=== PATIENT | female | born 1935 | race Caucasian/White ===

== ENCOUNTER 2023-01-16 14:43 | Outpatient (REF) | payer MEDICARE, BC, SELFPAY ==
[2023-01-16 21:19] LABS: HCT 38.4 % (36.0-46.0); HGB 12.6 g/dL (11.2-15.7); MCH 32.2 pg (27.0-33.0); MCHC 32.8 % (32.0-36.0); MCV 98 fL (80-95); MPV 12.6 fL (8.0-11.0); Platelet Count 225 10^3/uL (130-400); RBC 3.91 10^6/uL (3.93-5.22); RDW 12.2 % (11.7-14.6); RDW-SD 44.1 fL; WBC 5.37 10^3/uL (4.4-10.8)
[2023-01-16 21:31] LABS: Iron 88 ug/dL (50-170); Total Iron Binding Capacity 310 ug/dL (250-450); Transferrin Sat 28 % (15-50)
[2023-01-16 21:43] LABS: Anion Gap 4.4 mmol/L (3-11); BUN 20 mg/dL (7-18); CO2 32.6 mmol/L (21.0-32.0); CREATININE 0.6 mg/dL (0.55-1.02); Calcium 9.2 mg/dL (8.5-10.1); Chloride 103 mmol/L (98-107); Estimated GFR 87.36 (mL/min/1.73m2); Ferritin 29 ng/mL (8-252); Glucose 106 mg/dL (74-106); Potassium 4.3 mmol/L (3.5-5.1); Sodium 140 mmol/L (136-145)
== END 2023-01-16 14:44 | disposition home or self-care (01) ==
LOC: NCHCN 14:43
PROVIDERS: Visit Provider Family Medicine
DX: G25.81 Restless legs syndrome (principal); I10 Essential (primary) hypertension; R00.0 Tachycardia, unspecified
CPT/HCPCS: 80048; 85027; 82728; 83540; 83550